=== PATIENT | female | born 1955 | race Asian ===

== ENCOUNTER 2017-04-18 06:08 | Day surgery (SDC) | payer OTHER ==
[~2017-04-18] VITALS: Ht 149.9 cm; Wt 45.9 kg
[2017-04-18] MEDS ORDERED: ALBUTEROL SULFATE 2.5 MG/0.5 ML NEB SOLUTION NEB ONE (06:09)
[2017-04-18] MEDS ORDERED: LIDOCAINE HCL 4% 50 ML SOLUTION TP ONE (06:09)
[2017-04-18] MEDS ORDERED: LIDOCAINE HCL 2% 30 ML JELLY TP ONE (06:09)
[2017-04-18] MEDS ORDERED: BENZOCAINE 20% 50 MCG/SPRAY 57 GM TP ONE (06:09)
[2017-04-18] MEDS ORDERED: SODIUM CHLORIDE 0.9% 1,000 ML IV ONE ×2 (06:33→07:00)
[2017-04-18] MEDS ORDERED: GEMF600T3 PO (07:49)
[2017-04-18] MEDS ORDERED: TRIA1TAB93 PO (07:49)
[2017-04-18] MEDS ORDERED: LOSA50TA37 PO (07:49)
[2017-04-18] MEDS ORDERED: MIDAZOLAM HCL 2 MG/2 ML VIAL ONE (07:58)
[2017-04-18] MEDS ORDERED: FentaNYL CITRATE-PF 100 MCG/2 ML VIAL ONE (07:59)
[2017-04-18] MEDS ORDERED: MethylPREDNISolone SOD SUCC 125 MG/2 ML VIAL IVP ONE ×2 (08:45)
[2017-04-18] MEDS ORDERED: MethylPREDNISolone SOD SUCC 125 MG/2 ML VIAL ONE (09:05)
[2017-04-18] MEDS ORDERED: OXYGEN THERAPY IH SCH ×2 (20:00)
== END 2017-04-18 11:20 | disposition home or self-care (01) ==
LOC: SURGERY 06:08
PROVIDERS: ATTEND Internal Medicine Critical Care Medicine
DX: J38.4 Edema of larynx (principal); B37.0 Candidal stomatitis; I10 Essential (primary) hypertension; J47.9 Bronchiectasis, uncomplicated; Z90.89 Acquired absence of other organs; Z91.013 Allergy to seafood; Z79.899 Other long term (current) drug therapy
CPT/HCPCS: 31623; 31624; 71045; 87015; 87070; 87077; 87205; 87220; 88108; 88312; J2250; J2930; J3010; J7030

== ENCOUNTER 2018-08-21 06:36 | Day surgery (SDC) | payer MEDICARE, OTHER ==
[~2018-08-21] VITALS: Ht 142.2 cm; Wt 44.8 kg
[~2018-08-21 06:36] MED LIST: GEMF600T5 PO; LOSA50TA64 PO; SODIUM CHLORIDE 0.9% 1,000 ML IV ONE; TRIA1TAB93 PO
[2018-08-21] MEDS ORDERED: BENZOCAINE 20% 50 MCG/SPRAY 57 GM TP ONE (06:37)
[2018-08-21] MEDS ORDERED: LIDOCAINE 2% 30 ML JELLY TP ONE (06:37)
[2018-08-21] MEDS ORDERED: ALBUTEROL SULFATE 2.5 MG/0.5 ML NEB SOLUTION NEB ONE (06:37)
[2018-08-21] MEDS ORDERED: LIDOCAINE 4% 50 ML SOLUTION TP ONE (06:37)
[2018-08-21] MEDS: SODIUM CHLORIDE 0.9% 1,000 ML IV ONE (07:25)
[2018-08-21] MEDS ORDERED: MIDAZOLAM HCL 2 MG/2 ML VIAL ONE (08:12)
[2018-08-21] MEDS ORDERED: FentaNYL CITRATE-PF 100 MCG/2 ML VIAL ONE (08:12)
[2018-08-21] MEDS: MethylPREDNISolone SOD SUCC 125 MG/2 ML VIAL IVP ONE (10:09)
[2018-08-21] MEDS ORDERED: OXYGEN THERAPY IH SCH (20:00)
== END 2018-08-21 11:35 | disposition home or self-care (01) ==
LOC: SURGERY 06:36
PROVIDERS: ATTEND Internal Medicine Critical Care Medicine
DX: J38.4 Edema of larynx (principal); B37.0 Candidal stomatitis; I10 Essential (primary) hypertension; E78.00 Pure hypercholesterolemia, unspecified; Z98.890 Other specified postprocedural states
CPT/HCPCS: 31623; 31624; 71045; 87015; 87070; 87077; 87101; 87205; 87206; 87220; J2250; J2930; J3010; J7030

== ENCOUNTER → 2018-12-11 | Outpatient (CLI) | payer MEDICARE, OTHER ==
[~2018-12-11] MED LIST changes: -SODIUM CHLORIDE 0.9% 1,000 ML IV ONE
[2018-12-11 13:16] LABS: CHOL/HDL RATIO 2.5 (3.9-5.7)
== END | disposition home or self-care (01) ==
LOC: LABPV 09:34
PROVIDERS: ATTEND Internal Medicine Cardiovascular Disease
DX: I11.0 Hypertensive heart disease with heart failure (principal); I50.9 Heart failure, unspecified; E11.8 Type 2 diabetes mellitus with unspecified complications; E55.9 Vitamin D deficiency, unspecified; D56.5 Hemoglobin E-beta thalassemia

== ENCOUNTER 2020-03-08 06:23 | Day surgery (SDC) | payer MEDICARE, OTHER ==
[2020-03-05 14:11] LABS: COVID AG,FIA SOURCE NASOPHARYNGEAL
[~2020-03-08] VITALS: Ht 144.8 cm; Wt 45.9 kg
[~2020-03-08 06:23] MED LIST changes: +LOSA50TA37 PO; -LOSA50TA64 PO; +SODIUM CHLORIDE 0.9% 1,000 ML IV ONE; +SODIUM CHLORIDE 0.9% 1,000 ML ONE
[2020-03-08] MEDS ORDERED: PHYT5TAB PO (07:21)
[2020-03-08] MEDS ORDERED: PRED10 PO (07:21)
[2020-03-08] MEDS ORDERED: AMLO-257 PO (07:21)
[2020-03-08] MEDS ORDERED: MONT-35 PO (07:21)
[2020-03-08] MEDS ORDERED: FentaNYL CITRATE-PF 100 MCG/2 ML VIAL ONE (07:29)
[2020-03-08] MEDS ORDERED: MIDAZOLAM HCL 2 MG/2 ML VIAL ONE (07:29)
[2020-03-08] MEDS ORDERED: MethylPREDNISolone SOD SUCC 125 MG/2 ML VIAL IVP ONE (08:45)
[2020-03-08] MEDS ORDERED: MethylPREDNISolone SOD SUCC 125 MG/2 ML VIAL ONE (08:52)
[2020-03-08] MEDS ORDERED: PHYTONADIONE 10 MG/1 ML AMP SQ ONE (09:00)
[2020-03-08] MEDS ORDERED: OXYGEN THERAPY IH SCH (20:00)
== END 2020-03-08 10:25 | disposition home or self-care (01) ==
LOC: SURGERY 06:23
PROVIDERS: ATTEND Internal Medicine Critical Care Medicine
DX: J38.4 Edema of larynx (principal); B37.0 Candidal stomatitis; Z98.890 Other specified postprocedural states; Z91.013 Allergy to seafood; E78.00 Pure hypercholesterolemia, unspecified
CPT/HCPCS: 31623; 31624; 71045; 87015; 87070; 87077; 87101; 87186; 87206; 87220; 87426; 88108; 88312; C9803; J2250; J2930; J3010; J3430; J7030

== ENCOUNTER 2020-12-01 05:25 | Day surgery (SDC) | payer MEDICARE, OTHER ==
[2020-11-29 09:33] LABS: COVID AG,FIA SOURCE NASOPHARYNGEAL
[~2020-12-01] VITALS: Ht 142.2 cm; Wt 49.0 kg
[~2020-12-01 05:25] MED LIST changes: +AMLO-257 PO; -GEMF600T5 PO; -LOSA50TA37 PO; +MONT-35 PO; +PHYT5TAB PO; +PRED10 PO; -SODIUM CHLORIDE 0.9% 1,000 ML IV ONE; -SODIUM CHLORIDE 0.9% 1,000 ML ONE; -TRIA1TAB93 PO
[2020-12-01] MEDS ORDERED: BENZOCAINE 20% 50 MCG/SPRAY 57 GM TP ONE (05:26)
[2020-12-01] MEDS ORDERED: ALBUTEROL SULFATE 2.5 MG/0.5 ML NEB SOLUTION NEB ONE (05:26)
[2020-12-01] MEDS ORDERED: LIDOCAINE 2% 30 ML JELLY TP ONE (05:26)
[2020-12-01] MEDS ORDERED: SODIUM CHLORIDE 0.9% 1,000 ML ONE (05:47)
[2020-12-01] MEDS ORDERED: SODIUM CHLORIDE 0.9% 1,000 ML IV ONE (06:30)
[2020-12-01] MEDS ORDERED: MIDAZOLAM HCL 5 MG/ML VIAL ONE (07:44)
[2020-12-01] MEDS ORDERED: FentaNYL CITRATE PF 100 MCG/2 ML VIAL ONE (07:44)
[2020-12-01] MEDS ORDERED: MethylPREDNISolone SOD SUCC 125 MG/2 ML VIAL IVP ONE (08:45)
[2020-12-01] MEDS ORDERED: MethylPREDNISolone SOD SUCC 125 MG/2 ML VIAL ONE (09:14)
[2020-12-01] MEDS ORDERED: LORazepam 2 MG/ML VIAL ONE (09:39)
[2020-12-01] MEDS ORDERED: LORazepam 2 MG/ML VIAL IVP ONE (09:45)
[2020-12-01] MEDS ORDERED: OXYGEN THERAPY IH SCH (20:00)
== END 2020-12-01 11:45 | disposition home or self-care (01) ==
LOC: SURGERY 05:25
PROVIDERS: ATTEND Internal Medicine Critical Care Medicine
DX: J38.4 Edema of larynx (principal); B37.0 Candidal stomatitis; J45.909 Unspecified asthma, uncomplicated; I10 Essential (primary) hypertension; Z98.890 Other specified postprocedural states; E78.00 Pure hypercholesterolemia, unspecified; Z79.899 Other long term (current) drug therapy
CPT/HCPCS: 31623; 31624; 71045; 87015; 87070; 87077; 87101; 87186; 87205; 87206; 87220; 87426; 88108; 88184; 88185; 88312; C9803; J2060; J2250; J2930; J3010; J7030; J7613

== ENCOUNTER 2022-01-16 05:54 | Day surgery (SDC) | payer OTHER ==
[~2022-01-16] VITALS: Ht 144.8 cm; Wt 48.5 kg
[~2022-01-16 05:54] MED LIST changes: +PRED-729 PO; -PRED10 PO
[2022-01-16] MEDS ORDERED: BENZOCAINE 20% 50 MCG/SPRAY 57 GM TP ONE (05:55)
[2022-01-16] MEDS ORDERED: LIDOCAINE 4% 50 ML SOLUTION TP ONE (05:55)
[2022-01-16] MEDS ORDERED: LIDOCAINE 2% 11 ML JELLY TP ONE (05:55)
[2022-01-16] MEDS ORDERED: SODIUM CHLORIDE 0.9% 1,000 ML IV ONE (07:00)
[2022-01-16] MEDS ORDERED: SODIUM CHLORIDE 0.9% 1,000 ML ONE (07:06)
[2022-01-16 07:12] LABS: COVID AG,FIA SOURCE NASAL SWAB
[2022-01-16] MEDS ORDERED: FentaNYL CITRATE PF 100 MCG/2 ML VIAL ONE (08:10)
[2022-01-16] MEDS ORDERED: MIDAZOLAM HCL 5 MG/ML VIAL ONE (08:10)
[2022-01-16] MEDS ORDERED: MethylPREDNISolone SOD SUCC 125 MG/2 ML VIAL ONE (09:08)
[2022-01-16] MEDS ORDERED: MethylPREDNISolone SOD SUCC 125 MG/2 ML VIAL IVP ONE (09:15)
[2022-01-16] MEDS ORDERED: OXYGEN THERAPY IH SCH (20:00)
== END 2022-01-16 11:00 | disposition home or self-care (01) ==
LOC: SURGERY 05:54
PROVIDERS: ATTEND Internal Medicine Critical Care Medicine
DX: R05.3 Chronic cough (principal); J45.909 Unspecified asthma, uncomplicated; J47.9 Bronchiectasis, uncomplicated; R91.1 Solitary pulmonary nodule; B37.0 Candidal stomatitis; I10 Essential (primary) hypertension; Z20.822 Contact with and (suspected) exposure to COVID-19; Z79.899 Other long term (current) drug therapy; Z86.16 Personal history of COVID-19; Z91.013 Allergy to seafood; Z90.49 Acquired absence of other specified parts of digestive tract
CPT/HCPCS: 31623; 87101; 87220; 87070; 88108; 88305; 87186; 31624; 71045; 87015; 87426; 87206; J3010; J2930; J2250; Q9967; J7030; C9803; Z7610

== ENCOUNTER 2023-06-25 06:36 | Day surgery (SDC) | payer OTHER ==
[~2023-06-25] VITALS: Ht 144.8 cm; Wt 48.2 kg
[2023-06-25] MEDS ORDERED: MIDAZOLAM HCL 2 MG/2 ML VIAL ONE (07:26)
[2023-06-25] MEDS ORDERED: FentaNYL CITRATE PF 100 MCG/2 ML VIAL ONE (07:26)
[2023-06-25] MEDS ORDERED: SODIUM CHLORIDE 0.9% 1,000 ML ONE (07:46)
[2023-06-25] MEDS: SODIUM CHLORIDE 0.9% 1,000 ML IV ONE (08:08)
[2023-06-25 09:10] VITALS: PULSE 91; RESP 20; O2SAT 97
[2023-06-25] MEDS ORDERED: MethylPREDNISolone SOD SUCC 125 MG/2 ML VIAL ONE (09:35)
[2023-06-25] MEDS: MethylPREDNISolone SOD SUCC 125 MG/2 ML VIAL IVP ONE (10:00)
[2023-06-25] MEDS ORDERED: ALBUTEROL SULFATE 2.5 MG/0.5 ML NEB SOLUTION NEB ONE (16:49)
[2023-06-25] MEDS ORDERED: LIDOCAINE 2% 11 ML JELLY ONE (16:50)
[2023-06-25] MEDS ORDERED: BENZOCAINE 20% 50 MCG/SPRAY 57 GM ONE (16:50)
[2023-06-25] MEDS ORDERED: LIDOCAINE 4% 50 ML SOLUTION ONE (16:51)
== END 2023-06-25 11:55 | disposition home or self-care (01) ==
LOC: SURGERY 06:36
PROVIDERS: ATTEND Internal Medicine Critical Care Medicine
DX: R05.3 Chronic cough (principal); Z11.9 Encounter for screening for infectious and parasitic diseases, unspecified; J38.4 Edema of larynx; B37.0 Candidal stomatitis; R06.2 Wheezing; R91.1 Solitary pulmonary nodule; R91.8 Other nonspecific abnormal finding of lung field; J98.4 Other disorders of lung; J84.10 Pulmonary fibrosis, unspecified; J91.8 Pleural effusion in other conditions classified elsewhere
CPT/HCPCS: 87206; 87101; 87220; 87070; 88108; 87186; 31623; 31624; 71045; 87015; J3010; J2250; J2930; Q9967; J7030; J7613; Z7610